=== PATIENT | female | born 1985 | race Caucasian/White ===

== ENCOUNTER → 2018-02-02 | Outpatient (CLI) | payer OTHER ==
--- NOTE | 2018-02-02 13:37 | US ---
EXAMINATION TYPE: Transabdominal DATE OF EXAM: 07/07/17 COMPARISON: NONE CLINICAL HISTORY: Z36 Confirm dates and Viability. EXAM PERFORMED: Transabdominal (TA) EXAM MEASUREMENTS: GESTATIONAL AGE / DATING Physician Established: Not yet established Dates by LMP: (13 weeks/0 days) EDC: 08/10/2018 Dates by First Scan: No previous this is first scan Dates by Current Scan for: (13 weeks/0 days) EDC: 08/10/2018 MATERNAL ANATOMY Uterus: 12.8 x 9.0 x 8.4cm Right Ovary: not seen Left Ovary: 3.3 x 2.0 x 1.8cm Post CDS / Adnexa: wnl Presence of free fluid: no Presence of corpus luteal cyst: in left ovary = 2.0 x 1.5 x 1.3cm Presence of subchorionic bleed: no GESTATION / SURVEY CRL: 6.6cm (13 weeks/0 days) Yolk Sac (normal less than 6mm): not seen Heart Rate: 155 bpm Rhythm: Normal IUP: single Nuchal Translucency 10-14wks (normal less than 3mm): 1.3mm Date of LMP: 11/03/2017 Beta HcG (if available): NA Single, live IUP, 13 weeks/0 days, EDC: 08/10/2018, [id number] IMPRESSION: Single live intrauterine with a sonographic age of 13 weeks and 0 days and estimated date o f delivery of 08/10/2018. Dates are concordant with the menstrual age.
[2018-02-02 14:09] LABS: HCT 35.9 % (34.0-46.0); HGB 12.3 gm/dL (11.4-16.0); MCH 30.8 pg (25.0-35.0); MCHC 34.4 g/dL (31.0-37.0); MCV 89.7 fL (80.0-100.0); Platelet Count 248 k/uL (150-450); WBC 8.7 k/uL (3.8-10.6)
[2018-02-02 14:12] LABS: Glucose 85 mg/dL (74-99)
[2018-02-02 19:47] LABS: Hepatitis B Surface AB- Quant 475.5 mIU/mL
[2018-02-02 20:50] LABS: HIV 1 AB Non-Reactive (Non-Reactive); HIV AB P24 Non-Reactive (Non-Reactive); HIV P24 AG Non-Reactive (Non-Reactive)
[2018-02-03 07:14] LABS: Toxoplasma Antibody (IgG) <3.0 IU/mL (<7.2); Toxoplasma Antibody (IgM) <3.0 AU/mL (<8.0)
== END | disposition home or self-care (01) ==
LOC: RADUSWWP 12:18
PROVIDERS: ATTEND Obstetrics & Gynecology
DX: O26.811 Pregnancy related exhaustion and fatigue, first trimester (principal); Z3A.13 13 weeks gestation of pregnancy
CPT/HCPCS: 76801; 76813; 82565; 82947; 85027; 86706; 86762; 86777; 86778; 86780; 86850; 86900; 86901; 87390

== ENCOUNTER → 2018-03-16 | Outpatient (CLI) | payer OTHER ==
--- NOTE | 2018-03-16 12:57 | US ---
EXAMINATION TYPE: US OB anatomy transabd DATE OF EXAM: 03/16/2018 COMPARISON: First trimester ultrasound February 02, 2018 HISTORY: O36.62X0 LARGE FOR DATES TECHNIQUE: Transabdominal (TA) EXAM MEASUREMENTS: GESTATIONAL AGE / DATING Physician Established: (19 weeks/0 days) EDC: 08/10/2018 Dates by LMP: (19 weeks/0 days) EDC: 08/10/2018 Dates by First Scan: (19 weeks/0 days) EDC: 08/10/2018 Dates by Current Scan for: (19 weeks/3 days) EDC: 08/07/2018 SURVEY IUP: Single PLACENTA: Anterior PREVIA: No previa DELIA: 13.1 cm Normal CERVICAL LENGTH (transabdominal: norm > 3.0cm): 4.0 cm BIOMETRY PRESENTATION: Vertex BPD: 4.4 cm 19 weeks / 3 days HC: 15.5 cm 18 weeks / 4 days AC: 13.7 cm 19 weeks / 1 days FL: 3.3 cm 20 weeks / 3 days ESTIMATED WEIGHT IN GRAMS: 299 grams ESTIMATED WEIGHT IN LBS/OZ: 0 lbs. 11 oz. WEIGHT PERCENTAGE BASED ON ESTABLISHED DATE: 78 % HC/AC: 1.1 Normal FL/AC: 24% Normal HEART RATE: 147 bpm RHYTHM: Normal ANATOMY SEEN (within normal limits): * Lateral Vent (< 1 cm) 0.7 cm * Cisterna Magna (< 1.1 cm) 0.5 cm * Nuchal Fold (< 0.6 cm) 0.2 cm * Cerebellum (varies with age) 0.9 cm Choroid Plexus (bilateral) Midline Falx Cavus Septi Pellucidi Four Chamber Heart Outflow tracts: LVOT/RVOT Stomach Situs Nose / Lips Diaphragm Kidneys (bilateral) Bladder Cord Insert Three Vessel Cord Longitudinal Spine Transverse Spine Arms (bilateral) Legs (bilateral) Single live intrauterine gestation is redemonstrated. No suspicious cervical thinning is seen. Normal cephalad presentation to fetus is seen currently. There is no ultrasound evidence for placenta previ a. Amniotic fluid index is calculated within normal limits. biometry measurements are congruent and felt within normal limits. During real-time scanning no suspicious anatomical abnormality is see n. Images saved show no suspicious abnormality. There is slightly suboptimal visualization of kidneys on images saved. IMPRESSION: As above.
== END | disposition home or self-care (01) ==
LOC: RADUSWWP 08:46
PROVIDERS: ATTEND Obstetrics & Gynecology
DX: O36.62X0 Maternal care for excessive fetal growth, second trimester, not applicable or unspecified (principal); Z3A.19 19 weeks gestation of pregnancy
CPT/HCPCS: 76811

== ENCOUNTER → 2018-04-22 | Outpatient (CLI) | payer OTHER ==
[2018-04-22 09:50] LABS: HCT 35.4 % (34.0-46.0); HGB 11.4 gm/dL (11.4-16.0); MCH 30.1 pg (25.0-35.0); MCHC 32.3 g/dL (31.0-37.0); Mean Platelet Volume 6.5; Platelet Count 217 k/uL (150-450); RDW 13.1 % (11.5-15.5)
== END ==
LOC: LABWHC1 08:10
PROVIDERS: ATTEND Obstetrics & Gynecology
DX: Z34.82 Encounter for supervision of other normal pregnancy, second trimester (principal); Z3A.00 Weeks of gestation of pregnancy not specified
CPT/HCPCS: 36415; 82950; 85027

== ENCOUNTER → 2018-07-08 | Outpatient (CLI) | payer OTHER ==
--- NOTE | 2018-07-08 13:24 | US ---
EXAMINATION TYPE: US OB >= 14 wk fetus DATE OF EXAM: 07/08/2018 COMPARISON: Prior ultrasounds February 02, 2018 first trimester and second trimester March 16, 2018 CLINICAL HISTORY: O36.63X0 Large for Dates TECHNIQUE: GESTATIONAL AGE / DATING Physician Established: (35 weeks/ 2 days) EDC: 08/10/18 Dates by LMP: (35 weeks/2 days) EDC: 08/10/18 Dates by First Scan: (35 weeks/2 days) EDC: 08/10/18 Dates by Current Scan: (34 weeks/1 days) EDC: 08/18/18 SURVEY IUP: Single PLACENTA: Anterior PREVIA: No Previa DELIA: 9.2 cm CERVICAL LENGTH (transvaginal: norm> 2.5cm): 3.3 cm BIOMETRY PRESENTATION: Vertex BPD: 8.8 cm 35 weeks / 2 days HC: 31.3 cm 35 weeks / 1 days AC: 28.8 cm 32 weeks / 6 days FL: 6.7 cm 34 weeks / 3 days ESTIMATED WEIGHT IN GRAMS: 2266 grams ESTIMATED WEIGHT IN LBS/OZ: 5 lbs. 0 oz. WEIGHT PERCENTAGE BASED ON ESTABLISHED DATES: 12% HC/AC: 1.1 FL/AC: 23.2 HEART RATE: 148 bpm RHYTHM: Normal Anatomy visualized wnl: Bladder Stomach Situs Nose/lips Cavum Septum Pellucidi 3 vessel chord Diaphragm Single live intrauterine gestation is redemonstrated. Normal cephalad presentation to fetus is seen. No cervical thinning is noted. No ultrasound evidence for placenta previa. Amniotic fluid index is ca lculated lower limits of normal. The biometry measurements and congruent and felt within normal limits. Estimated weight lower limits of normal. During real-time scanning there is redemonst ration of some normal anatomical structures as noted above. IMPRESSION: As above.
== END | disposition home or self-care (01) ==
LOC: RADUSWWP 12:10
PROVIDERS: ATTEND Obstetrics & Gynecology
DX: O36.63X0 Maternal care for excessive fetal growth, third trimester, not applicable or unspecified (principal); Z3A.34 34 weeks gestation of pregnancy
CPT/HCPCS: 76805

== ENCOUNTER 2018-07-13 08:51 | Outpatient (CLI) | payer OTHER ==
[2018-07-13 09:53] LABS: Basophils % (A) 0 %; Eosinophils # (A) 0.1 k/uL (0-0.7); Eosinophils % (A) 1 %; HCT 34.5 % (34.0-46.0); HGB 11.9 gm/dL (11.4-16.0); Lymphocytes # (A) 1.6 k/uL (1.0-4.8); Lymphocytes % (A) 17 %; MCH 29.9 pg (25.0-35.0); MCHC 34.6 g/dL (31.0-37.0); MCV 86.5 fL (80.0-100.0); Monocytes # (A) 0.6 k/uL (0-1.0); Monocytes % (A) 6 %; Neutrophils % (A) 73 %; Platelet Count 208 k/uL (150-450); RBC 3.99 m/uL (3.80-5.40); RDW 12.7 % (11.5-15.5); WBC 9.6 k/uL (3.8-10.6)
[2018-07-13 09:58] LABS: ALT 16 U/L (9-52); AST 13 U/L (14-36); Blood Urea Nitrogen 9 mg/dL (7-17); LDH 408 U/L (313-618); Uric Acid 4.2 mg/dL (3.7-7.4)
[2018-07-13 10:03] LABS: Appearance,Urine Clear (Clear); Bilirubin,Urine Negative (Negative); Blood,Urine Negative (Negative); Color,Urine Yellow; Glucose,Urine (UA) Negative (Negative); Ketones,Urine Negative (Negative); Leukocyte Esterase,Urine Negative (Negative); Nitrite,Urine Negative (Negative); PH, Urine 5.5 (5.0-8.0); Protein,Urine Negative (Negative); Specific Gravity,Urine 1.018 (1.001-1.035); Urobilinogen,Urine <2.0 mg/dL (<2.0)
[2018-07-13 10:28] LABS: INR 0.8 (<1.2); Partial Thromboplastin Time 22.4 sec (22.0-30.0); Prothrombin Time 9.3 sec (9.0-12.0)
[2018-07-13 11:08] VITALS: BP 132/93; PULSE 98; RESP 16; TEMP 97.9
--- NOTE | 2018-07-13 18:04 | P.MSEPDOC ---
Presenting Problems - Arrival Data Date of Arrival on Unit: 07/13/18 Time of Arrival on Unit: 08:55 Mode of Transport: Ambulatory - Complaint OB-Reason for Admission/Chief Complaint: PIH Comment: sent from office for PIH workup Medical History - Information : 2 Para: 1 Term: 1 : 0 Abortions: Spontaneous or Elective: 0 Number of Living Children: 1 - Gestational Age Gestational Age by GEORGE (wks/days): 36 Weeks and 0 Days Review of Systems - Review of Systems Constitutional: No problems Breast: No problems ENT: No problems Cardiovascular: No problems Respiratory: No problems Gastrointestinal: No problems Genitourinary: No problems Musculoskeletal: No problems Neurological: No problems Skin: No problems Vital Signs - Temperature Temperature: 97.9 F Temperature Source: Temporal Artery Scan - Pulse Right Brachial Pulse Rate: 98 Pulse Assessment Method: Automatic Cuff - Respirations Respiratory Rate: 16 Oxygen Delivery Method: Room Air - Blood Pressure Right Arm Blood Pressure: 132/93 Blood Pressure Mean: 106 Blood Pressure Source: Automatic Cuff Medical Screen Scoring (Pre) - Cervical Exam Dilation: Exam Deferred Effacement: Exam Deferred - Uterine Contractions Frequency: N/A Duration: N/A Intensity: N/A - Maternal Vital Signs Maternal Temperature: N/A Maternal Blood Pressure: Diastolic > 89 = 1 Signs of Preeclampsia: N/A Maternal Respirations: N/A - Pain Assessment Pain Scale Used: Numeric (1 - 10) Pain Intensity: 0 - Maternal Trauma Maternal Trauma: N/A - Assessment Baseline FHR: 135 Heart Rate - NICHD Category: Category I (Normal) = 0 NST: Reactive Position: N/A Station: N/A - Total Score Total Score (Pre): 1 - Level of Risk Level of Risk: Low (0-5) Physician Notification (Pre) - Physician Notified Physician Notified Date: 07/13/18 Physician Notified Time: 10:35 Physician/Practitioner Notifed:: ashly Spoke With: ashly New Order Received: Yes - Notification Comment Comment: pt sent from office for [facility] work-up. sent with orders. reported labs wnl, blood pressures reported as documented in [facility], Dr would like blood pressure monitored for one more hour and called back for report Physician Notification (Post) - Physician Notified Physician Notified Date: 07/13/18 Physician Notified Time: 11:45 Physician/Practitioner Notified:: ashly Spoke With: ashly New Order Received: Yes - Notification Comment Comment: reported bp's for past hour. discharges pt home. follow up at scheduled appointment thursday Disposition - Disposition OB Disposition: Discharge to home Discharge Date: 07/13/18 Discharge Time: 11:46 I agree with the RN Medical Screening Exam: Yes Risk & Benefit of care provided described in d/c instruction: Yes Diagnosis: GESTATIONAL HTN W/O SIGNIFICANT PROTEINURIA, THIRD TRIMESTER (Pt has gestational hypertension, without evidence of pre-eclampsia. I will see her back in about 2-3 days. We discussed delivery at 37wks due to this, earlier if evidence of preeclampsia.)
== END 2018-07-13 11:45 | disposition home or self-care (01) ==
LOC: FBPOP 08:51
PROVIDERS: ATTEND Obstetrics & Gynecology
DX: O13.3 Gestational [pregnancy-induced] hypertension without significant proteinuria, third trimester (principal); Z3A.36 36 weeks gestation of pregnancy
CPT/HCPCS: 59025; 81003; 82565; 82570; 83615; 84156; 84450; 84460; 84520; 84550; 85025; 85610; 85730

== ENCOUNTER 2018-07-16 10:58 | Observation (INO) | payer OTHER ==
[2018-07-16 12:05] LABS: Appearance,Urine Clear (Clear); Bilirubin,Urine Negative (Negative); Blood,Urine Negative (Negative); Color,Urine Light Yellow; Glucose,Urine (UA) Negative (Negative); Ketones,Urine Negative (Negative); Leukocyte Esterase,Urine Negative (Negative); Nitrite,Urine Negative (Negative); PH, Urine 6.5 (5.0-8.0); Protein,Urine Negative (Negative); Urobilinogen,Urine <2.0 mg/dL (<2.0)
[2018-07-16 12:21] LABS: Creatinine,Urine Random 62.1 mg/dL
--- NOTE | 2018-07-16 12:31 | US ---
EXAMINATION TYPE: US OB >= 14 wk fetus DATE OF EXAM: 07/16/2018 COMPARISON: None CLINICAL HISTORY: induced hypertension at 36 weeks HTN TECHNIQUE: Transabdominal (TA) GESTATIONAL AGE / DATING Physician Established: (36 weeks/3 days) EDC: 08/10/18 Dates by LMP: (36 weeks/3 days) EDC: 08/10/18 Dates by First Scan: (36 weeks/3 days) EDC: 08/10/18 Dates by Current Scan: (36 weeks/2 days) EDC: 08/11/18 SURVEY IUP: Single PLACENTA: Anterior PREVIA: No Previa DELIA: 15.5 cm Normal CERVICAL LENGTH (transabdominal: norm > 3.0cm): 4.3 cm BIOMETRY PRESENTATION: Vertex LIE: Longitudinal BPD: 9.0 cm 36 weeks / 2 days HC: 33.1 cm 37 weeks / 5 days AC: 31.5 cm 35 weeks / 3 days FL: 7.1 cm 36 weeks / 3 days ESTIMATED WEIGHT IN GRAMS: 2833 grams ESTIMATED WEIGHT IN LBS/OZ: 6 lbs. 4 oz. WEIGHT PERCENTAGE BASED ON ESTABLISHED DATES: 42.2% HC/AC: 1.05 Normal FL/AC: 22.55 Normal HEART RATE: 159 bpm RHYTHM: Normal IMPRESSION: Single live intrauterine has a sonographic age of 36 weeks and 2 days and estimated date of delivery of 08/11/2018, concordant with menstrual age. heart rate and amniotic fluid index are w ithin normal limits.
[2018-07-16 13:23] LABS: Basophils % (A) 0 %; Eosinophils % (A) 0 %; HCT 35.3 % (34.0-46.0); HGB 11.6 gm/dL (11.4-16.0); Lymphocytes # (A) 1.6 k/uL (1.0-4.8); Lymphocytes % (A) 17 %; MCH 29.3 pg (25.0-35.0); MCHC 32.8 g/dL (31.0-37.0); MCV 89.2 fL (80.0-100.0); Mean Platelet Volume 8.1; Monocytes # (A) 0.5 k/uL (0-1.0); Monocytes % (A) 5 %; Neutrophils % (A) 74 %; Platelet Count 232 k/uL (150-450); RBC 3.95 m/uL (3.80-5.40); RDW 12.7 % (11.5-15.5); WBC 9.5 k/uL (3.8-10.6)
[2018-07-16 13:36] LABS: ALT 25 U/L (9-52); AST 18 U/L (14-36); Blood Urea Nitrogen 7 mg/dL (7-17); LDH 447 U/L (313-618); Uric Acid 4.7 mg/dL (3.7-7.4)
[2018-07-16 15:06] VITALS: RESP 16; BMI 34.3
[2018-07-16 15:48] VITALS: TEMP 97.1
[2018-07-16 17:45] VITALS: BP 135/90
--- NOTE | 2018-07-16 18:30 | P.HPOB ---
History of Present Illness H&P Date: 07/16/18 Chief Complaint: Hypertension This patient is a pleasant 32-year-old 2 para 1 female estimated date of confinement 08/10/2018 estimated gestational age 36-3/7 weeks who presented to my office this morning for follow-up visit secondary to gestational hypertension. Patient's history is such that approximately 3 days ago she was in the office her blood pressure 148/100 sent to labor and delivery for evaluation of preeclampsia. Labs are negative at that time and pressures were acceptable. Patient followed up today for repeat blood pressure check and office visit was found to have again persistent blood pressure elevation greater than 140/90. Patient sent to labor and delivery for further evaluation. care otherwise has been uncomplicated. Review of Systems Genitourinary: Reports Menstruation: Reports amenorrhea Past Medical History Past Medical History: No Reported History History of Any Multi-Drug Resistant Organisms: None Reported Past Surgical History: No Surgical Hx Reported Past Anesthesia/Blood Transfusion Reactions: No Reported Reaction Past Psychological History: No Psychological Hx Reported Smoking Status: Never smoker Past Alcohol Use History: None Reported Past Drug Use History: None Reported - Past Family History Mother Family Medical History: No Reported History Additional Family Medical History / Comment(s): grandmother pancreatic canser Medications and Allergies Home Medications Medication Instructions Recorded Confirmed Type Pnv,Calcium 72/Iron/Folic Acid 1 each PO DAILY 07/13/18 07/16/18 History [ Plus Tablet] Ranitidine HCl [Zantac] 1 tab PO DAILY 07/13/18 07/16/18 History Allergies Allergy/AdvReac Type Severity Reaction Status Date / Time No Known Allergies Allergy Verified 07/16/18 14:43 Exam Vital Signs Temp Pulse Pulse Resp BP 07/16/18 17:45 88 16 135/90 07/16/18 15:47 97.1 F L 88 16 132/81 07/16/18 14:02 98.3 F 76 16 124/79 07/16/18 13:00 84 16 126/94 07/16/18 12:43 97.8 F 80 16 154/88 07/16/18 12:19 97.8 F 100 16 135/94 Intake and Output 07/16/18 07/16/18 07/16/18 06:59 14:59 22:59 Other: Weight 90.718 kg - OBG Physical Exam Abdomen: bowel sounds normal, no diffuse tenderness, no bruit present, no guarding noted, no hepatomegaly, no splenomegaly, no mass Vulva: both: normal Vagina: normal moisture, no discharge Cervix: no lesion (Cervix in the office was fingertip thick), no discharge Uterus: enlarged (Fundal height is 37 cm) Results blood work shows she is A positive, rubella immune, RPR is nonreactive, hepatitis B was negative, HIV is nonreactive, Glucola was normal, group B strep was negative. Result Diagrams: 07/16/18 12:58 07/16/18 12:58 Abnormal Lab Results - Last 24 Hours (Table) 07/16/18 Range/Units 12:58 Creatinine 0.45 L (0.52-1.04) mg/dL Assessment and Plan Assessment: This is a pleasant 32-year-old 2 para 1 female 36-3/7 weeks gestation is admitted to labor and delivery for observation secondary to gestational hypertension. Patient this time does not appear to have preeclampsia, however I'm going to admit her overnight for observation and serial blood pressures. Due to the gestational hypertension if everything is okay overnight also likely will go home and presented back Thursday evening for Cervidil and delivery at 37 weeks. If there was evidence of significant hypertension or preeclampsia proceed with delivery earlier. Patient, I, and her have discussed this plan and she is agreeable. (1) 36 weeks gestation of Current Visit: Yes Status: Acute Code(s): Z3A.36 - 36 WEEKS GESTATION OF SNOMED Code(s): 96465910 (2) Gestational hypertension Current Visit: Yes Status: Acute Code(s): O13.9 - GESTATIONAL HTN W/O SIGNIFICANT PROTEINURIA, UNSP TRIMESTER SNOMED Code(s): 385043284
[2018-07-16 18:44] VITALS: PULSE 76
--- NOTE | 2018-07-16 18:44 | P.MSEPDOC ---
Presenting Problems - Arrival Data Date of Arrival on Unit: 07/16/18 Time of Arrival on Unit: 14:15 Mode of Transport: Ambulatory - Complaint OB-Reason for Admission/Chief Complaint: PIH Medical History - Information : 2 Para: 1 Term: 1 : 0 Abortions: Spontaneous or Elective: 0 Number of Living Children: 1 - Gestational Age Gestational Age by GEORGE (wks/days): 36 Weeks and 3 Days - History Complications: Preeclampsia Review of Systems - Review of Systems Constitutional: No problems Breast: No problems ENT: No problems Cardiovascular: No problems Respiratory: No problems Gastrointestinal: No problems Genitourinary: No problems Musculoskeletal: No problems Neurological: No problems Skin: No problems Vital Signs - Temperature Temperature: 97.1 F Temperature Source: Temporal Artery Scan - Pulse Apical Pulse Rate: 76 Pulse Assessment Method: Automatic Cuff Pulse Oximetery Pulse Rate: 88 Pulse Assessment Method: Automatic Cuff - Respirations Respiratory Rate: 16 Oxygen Delivery Method: Room Air - Blood Pressure Right Arm Blood Pressure: 135/90 Blood Pressure Mean: 105 Blood Pressure Source: Automatic Cuff Medical Screen Scoring (Pre) - Cervical Exam Dilation: Exam Deferred Effacement: Exam Deferred Membranes: Intact - Uterine Contractions Frequency: N/A Duration: N/A Intensity: N/A - Maternal Vital Signs Maternal Temperature: N/A Maternal Blood Pressure: Diastolic > 89 = 1 Signs of Preeclampsia: N/A Maternal Respirations: N/A - Pain Assessment Pain Location and Character: Generalized Pain Scale Used: Numeric (1 - 10) Pain Intensity: 2 Pain Management Goal: 3 Pain Description: *Acute Pain Frequency: Intermittent Pain Duration Units: Minutes Pain Behavior: Vocalization - Maternal Trauma Maternal Trauma: N/A - Assessment Baseline FHR: 140 Heart Rate - NICHD Category: Category I (Normal) = 0 NST: Reactive Position: N/A Station: N/A - Total Score Total Score (Pre): 1 - Level of Risk Level of Risk: Low (0-5) Physician Notification (Pre) - Physician Notified Physician Notified Date: 07/16/18 Physician Notified Time: 12:19 Physician/Practitioner Notifed:: Dr. Roach Spoke With: Dr. Roach New Order Received: Yes (Sent over from office for [facility] work up.) Medical Screen Scoring (Post) - Cervical Exam Dilation: Exam Deferred Effacement: Exam Deferred Membranes: Intact - Uterine Contractions Frequency: N/A Duration: N/A Intensity: N/A - Maternal Vital Signs Maternal Temperature: N/A Maternal Blood Pressure: Diastolic > 89 = 1 Signs of Preeclampsia: N/A Maternal Respirations: N/A - Pain Assessment Pain Location and Character: Generalized Pain Scale Used: Numeric (1 - 10) Pain Intensity: 2 Pain Management Goal: 3 Pain Description: *Acute Pain Frequency: Intermittent Pain Duration Units: Minutes Pain Behavior: Vocalization - Assessment Heart Rate: 140 Heart Rate - NICHD Category: Category I (Normal) = 0 NST: Reactive Position: N/A Station: N/A - Total Score Total Score (Post): 1 - Post Treatment Level of Risk Post Treatment Level of Risk: Low (0-5) Physician Notification (Post) - Physician Notified Physician Notified Date: 07/16/18 Physician Notified Time: 12:43 Physician/Practitioner Notified:: Dr. Roach Spoke With: Dr. Roach New Order Received: Yes (admit as 24hr obv at this time.) - Notification Comment Comment: Verbal orders from Dr. Roach to admit pt as 24hr obv at this time. Continuous fht monitoring and regular diet. Disposition - Disposition OB Disposition: Admit Discharge Date: 07/16/18 Discharge Time: 12:43 I agree with the RN Medical Screening Exam: Yes Risk & Benefit of care provided described in d/c instruction: Yes Diagnosis: GESTATIONAL HTN W/O SIGNIFICANT PROTEINURIA, THIRD TRIMESTER
--- NOTE | 2018-07-17 07:44 | P.PN ---
Progress Note - Text Progress Note Date: 07/17/18 Hospital day #2. Patient's rested overnight and nonstress test was category 1. Blood pressures remain stable. At this point there is no evidence of preeclampsia or maternal compromise. She does have gestational hypertension plan is to proceed with induction per recommendations at 37 weeks. Patient therefore we'll go home on modified bed rest and follow up here on Thursday for Cervidil placement. She is given strict instructions to call she had any signs or symptoms of preeclampsia or other concerns.
--- NOTE | 2018-07-17 07:47 | P.DS ---
Providers Date of admission: 07/16/18 13:31 Expected date of discharge: 07/17/18 Attending physician: Javi Roach Primary care physician: Stated None - Discharge Diagnosis(es) (1) 36 weeks gestation of Current Visit: Yes Status: Acute (2) Gestational hypertension Current Visit: Yes Status: Acute Hospital Course: Please see dictated H&P for intimate details of this patient's admission. Brief summary is a pleasant 32-year-old 2 para 1 female 36-3/7 weeks gestation admitted for evaluation of gestational hypertension. Patient is admitted preeclampsia labs are normal. Ultrasound was normal. NST is category 1. Patient's observed overnight blood pressures remain stable. Patient's discharge home follow up Thursday for Cervidil placement secondary to gestational hypertension. Patient Condition at Discharge: Good Plan - Discharge Summary New Discharge Prescriptions: No Action Pnv,Calcium 72/Iron/Folic Acid [ Plus Tablet] 1 each PO DAILY Ranitidine HCl [Zantac] 1 tab PO DAILY Discharge Medication List Pnv,Calcium 72/Iron/Folic Acid [ Plus Tablet] 1 each PO DAILY 07/13/18 [History] Ranitidine HCl [Zantac] 1 tab PO DAILY 07/13/18 [History] Follow up Appointment(s)/Referral(s): Javi Roach MD [STAFF PHYSICIAN] - 07/19/18 Patient Instructions/Handouts: Preeclampsia (GEN) Discharge Disposition: HOME SELF-CARE
== END 2018-07-17 08:41 | disposition home or self-care (01) ==
LOC: FBPOP 10:58 → 4FBP 13:31
PROVIDERS: ADMIT Obstetrics & Gynecology; ATTEND Obstetrics & Gynecology
DX: O13.3 Gestational [pregnancy-induced] hypertension without significant proteinuria, third trimester (principal); Z3A.36 36 weeks gestation of pregnancy
CPT/HCPCS: 59025; 99215; 82570; 84156; 82565; 83615; 84450; 84460; 84520; 84550; 85025; 81003; 76805; G0378 ×2

== ENCOUNTER 2018-07-19 06:00 | Inpatient (IN) | payer OTHER ==
[2018-07-19] MEDS ORDERED: BUTORPHANOL 1 MG/ML 1 ML VIAL IV PRN (16:38)
[2018-07-19] MEDS ORDERED: DINOPROSTONE 10 MG INSERT.ER VAGINAL ONE (16:38)
--- NOTE | 2018-07-19 16:45 | P.HPOB ---
History of Present Illness H&P Date: 07/19/18 Chief Complaint: Gestational hypertension. This patient is a pleasant 32-year-old 2 para 1 female estimated date of confinement 08/10/2018 estimated gestational age 37 weeks who presents to labor and delivery for two-stage induction of labor secondary to gestational hypertension. Patient has been in labor and delivery and admitted overnight most recently for high blood pressure. She said serial blood work which shows no evidence of preeclampsia however she has documented blood pressures on more than one occasion greater than 140/90. Per current recommendations plan is to proceed with delivery at this time secondary to gestational hypertension. Patient's care has otherwise been uncomplicated. Review of Systems Genitourinary: Reports Menstruation: Reports amenorrhea Past Medical History Past Medical History: No Reported History History of Any Multi-Drug Resistant Organisms: None Reported Past Surgical History: No Surgical Hx Reported Past Anesthesia/Blood Transfusion Reactions: No Reported Reaction Past Psychological History: No Psychological Hx Reported Smoking Status: Never smoker Past Alcohol Use History: None Reported Past Drug Use History: None Reported - Past Family History Mother Family Medical History: No Reported History Additional Family Medical History / Comment(s): grandmother pancreatic canser Medications and Allergies Home Medications Medication Instructions Recorded Confirmed Type Pnv,Calcium 72/Iron/Folic Acid 1 each PO DAILY 07/13/18 07/16/18 History [ Plus Tablet] Ranitidine HCl [Zantac] 1 tab PO DAILY 07/13/18 07/16/18 History Allergies Allergy/AdvReac Type Severity Reaction Status Date / Time No Known Allergies Allergy Verified 07/19/18 16:37 Exam Intake and Output 07/19/18 07/19/18 07/19/18 06:59 14:59 22:59 Other: Weight 90.718 kg - OBG Physical Exam Vulva: both: normal Vagina: normal moisture, no discharge Cervix: Cervix in the office was closed and uneffaced. Uterus: enlarged (Fundal height is 37 cm) Results blood work shows she is A positive, rubella immune, RPR nonreactive, hepatitis B negative, HIV nonreactive, Glucola was normal, group B strep was negative, most recent ultrasound showed baby approximately 6 lbs. 4 oz. Assessment and Plan Assessment: This is a pleasant 33-year-old 2 para 1 female 37-0/7 weeks gestation admitted for two-stage induction of labor secondary to gestational hypertension. Plan at this time is to proceed with two-stage induction of labor and anticipate vaginal delivery. Patient, eye, and her have discussed her c linical situation and they wished to proceed with delivery. (1) 37 weeks gestation of Current Visit: Yes Status: Acute Code(s): Z3A.37 - 37 WEEKS GESTATION OF SNOMED Code(s): 35085898 (2) Gestational hypertension Current Visit: No Status: Acute Code(s): O13.9 - GESTATIONAL HTN W/O SIGNIFICANT PROTEINURIA, UNSP TRIMESTER SNOMED Code(s): 801637584
[2018-07-19 16:46] VITALS: BMI 34.3
[2018-07-20] MEDS ORDERED: CARBOPROST TROMETHAMINE 250 MCG/ML 1 ML AMP IM PRN (04:50)
[2018-07-20] MEDS ORDERED: OXYTOCIN 30 UNITS/500 ML NS 30 UNIT in SALINE 1 500ML.BAG IV SCH (04:50)
[2018-07-20] MEDS ORDERED: OXYTOCIN 10 UNIT/ML 1 ML VIAL IM PRN (04:50)
[2018-07-20] MEDS ORDERED: METHYLERGONOVINE 0.2 MG/ML 1 ML AMP IM PRN (04:50)
[2018-07-20] MEDS ORDERED: TERBUTALINE 1 MG/ML VIAL SQ PRN (04:50)
[2018-07-20] MEDS ORDERED: LIDOCAINE 0.5% (PF) 5 MG/ML (50 ML SDV) SQ PRN (04:50)
[2018-07-20] MEDS ORDERED: LACTATED RINGERS 1,000 ML IV SCH (04:50)
[2018-07-20 06:19] LABS: INR 0.8 (<1.2); Partial Thromboplastin Time 22.1 sec (22.0-30.0); Prothrombin Time 9.3 sec (9.0-12.0)
[2018-07-20 06:21] LABS: Albumin 3.5 g/dL (3.5-5.0); Bilirubin, Delta 0.1 mg/dL (0.0-0.2); Bilirubin,Unconjugated 0.3 mg/dL (0.0-1.1); Total Bilirubin 0.4 mg/dL (0.2-1.3); Uric Acid 4.7 mg/dL (3.7-7.4)
--- NOTE | 2018-07-20 06:28 | P.PN ---
Progress Note - Text Progress Note Date: 07/20/18 Patient responded well to Cervidil overnight and is 2-3 cm dilated 50% effaced. She had some episodic blood pressure elevations however this did not require treatment. heart tones are category 1. Plan today is to proceed with induction of labor with Pitocin per protocol and artificial rupture membranes.
[2018-07-20 06:33] LABS: Basophils % (A) 0 %; Eosinophils # (A) 0.1 k/uL (0-0.7); Eosinophils % (A) 1 %; HCT 34.6 % (34.0-46.0); HGB 11.9 gm/dL (11.4-16.0); Lymphocytes % (A) 17 %; MCH 30.3 pg (25.0-35.0); MCHC 34.4 g/dL (31.0-37.0); MCV 88.1 fL (80.0-100.0); Mean Platelet Volume 8.6; Monocytes # (A) 0.5 k/uL (0-1.0); Monocytes % (A) 4 %; Neutrophils # (A) 8.7 k/uL (1.3-7.7); Neutrophils % (A) 75 %; Platelet Count 241 k/uL (150-450); RBC 3.93 m/uL (3.80-5.40); RDW 13.7 % (11.5-15.5); WBC 11.6 k/uL (3.8-10.6)
[2018-07-20] MEDS ORDERED: SODIUM CHLORIDE 0.9% 100 ML BAG ONE (08:28)
[2018-07-20] MEDS ORDERED: fentaNYL (PF) 50 MCG/ML 5 ML AMP ONE (08:28)
[2018-07-20] MEDS ORDERED: BUPIVACAINE (PF) 0.25% 30 ML VIAL ONE (08:28)
[2018-07-20] MEDS ORDERED: WITCH HAZEL 1 EACH MED..PAD TOPICAL PRN (12:46)
[2018-07-20] MEDS ORDERED: BISACODYL 10 MG SUPP RECTAL PRN (12:46)
[2018-07-20] MEDS ORDERED: OXYTOCIN 20 UNITS/1000 ML NS 1,000 ML IV SCH (12:46)
[2018-07-20] MEDS ORDERED: diphenhydrAMINE 25 MG CAP PO PRN (12:46)
[2018-07-20] MEDS ORDERED: LANOLIN CREAM 5 GM TUBE TOPICAL PRN (12:46)
[2018-07-20] MEDS ORDERED: diphenhydrAMINE 50 MG/ML 1 ML VIAL IVP PRN (12:46)
[2018-07-20] MEDS ORDERED: ACETAMINOPHEN TAB 325 MG TAB PO PRN (12:46)
[2018-07-20] MEDS ORDERED: HYDROCORTISONE 2.5% RECTAL CREAM 30 GM TUBE RECTAL PRN (12:46)
[2018-07-20] MEDS ORDERED: SIMETHICONE 80 MG CHEWABLE PO PRN (12:46)
[2018-07-20] MEDS ORDERED: ZOLPIDEM 5 MG TAB PO PRN (12:46)
[2018-07-20] MEDS ORDERED: BENZOCAINE/MENTHOL SPRAY 1 GM/SPRAY AEROSOL TOPICAL PRN (12:46)
--- NOTE | 2018-07-20 12:46 | P.PROBDLV ---
Vaginal Delivery Note - . Vaginal Delivery Note: Normal vaginal delivery viable male Apgars 8 and 9 delivery time is 1233 hrs. Please see dictated H&P for intimate details of this patient's admission. Brief summary is a pleasant 33-year-old 2 para 1 female 37 weeks gestation who is admitted for two-stage induction of labor secondary to gestational hypertension. Patient is admitted last evening Cervidil is placed.'s morning patient was 2-3 cm dilated has artificial rupture membranes for clear fluid. Labor is augmented at that time with Pitocin. Patient's labor progresses normally and she gets an epidural for pain control. Patient gets to complete pushes a proximally 1 time and delivers infant's head over a controlled fashion. Mouth and nares are bulb suctioned. There is a nuchal cord 1 which is easily reduced. With gentle downward traction we then have delivery the anterior and posterior shoulder and rest this infant's body. This is a vigorous viable male Apgars are 8 and 9 delivery time was 1233 hrs. After delivery the infant the is late the mother's abdomen. After the umbilical cord is done pulsating is doubly clamped and cut. Appears to be trivascular. Placenta spontaneously delivered intact. Estimated blood loss 100 mL. The left superficial periurethral laceration does not require sutures. Infant and mother are stable delivery room. All counts correct 3. There are no complications.
[2018-07-20] MEDS: IBUPROFEN 600 MG TAB PO PRN (19:55)
[2018-07-20] MEDS: SENNOSIDES-DOCUSATE SODIUM 1 EACH TAB PO SCH ×2 (19:55)
--- NOTE | 2018-07-21 06:29 | P.PNOBGVD ---
Subjective - Subjective Patient reports: Reports appetite normal, Reports voiding normally, Reports pain well controlled, Reports ambulating normally : doing well Objective - Latest Vital Signs Latest vital signs: Vital Signs Temp Pulse Resp BP Pulse Ox 07/20/18 23:51 98.1 F 86 18 90/40 98 07/20/18 19:47 98.5 F 94 16 145/80 07/20/18 16:00 98.3 F 84 15 146/93 07/20/18 14:45 97.5 F L 83 15 131/78 07/20/18 14:10 83 15 129/76 07/20/18 13:45 87 16 140/83 07/20/18 13:33 97 16 143/94 07/20/18 13:15 88 15 126/86 07/20/18 13:00 90 15 140/85 07/20/18 12:45 96.7 F L 85 16 147/77 Intake and Output 07/20/18 07/20/18 07/21/18 14:59 22:59 06:59 Output Total 150 Balance -150 Output: Urine 150 Other: # Voids 1 - Exam Lungs: bilateral: normal Chest: Normal S1, Normal S2 Extremities: Present: normal Abdomen: Present: normal appearance, soft Uterus: Present: normal, firm - Labs Labs: Abnormal Lab Results - Last 24 Hours (Table) 07/20/18 Range/Units 05:50 WBC 11.6 H (3.8-10.6) k/uL Neutrophils # 8.7 H (1.3-7.7) k/uL Assessment and Plan Assessment: day #1. Patient is resting without complaints. Patient desires to go home. Vital signs are stable she is afebrile. Uterus is firm nontender she's having normal lochia. Blood pressures highest 140s over 90s not requiring treatment. Patient is asymptomatic. Plan today is to continue routine care discharge home later today. (1) 37 weeks gestation of Current Visit: Yes Status: Acute Code(s): Z3A.37 - 37 WEEKS GESTATION OF SNOMED Code(s): 89180512 (2) Gestational hypertension Current Visit: No Status: Acute Code(s): O13.9 - GESTATIONAL HTN W/O SIGNIFICANT PROTEINURIA, UNSP TRIMESTER SNOMED Code(s): 364947158
[2018-07-21] MEDS: IBUPROFEN 600 MG TAB PO PRN (06:32)
--- NOTE | 2018-07-21 06:33 | P.DS ---
Providers Date of admission: 07/19/18 16:15 Expected date of discharge: 07/21/18 Attending physician: Javi Roach Primary care physician: Alee Sarah - Discharge Diagnosis(es) (1) 37 weeks gestation of Current Visit: Yes Status: Acute (2) Gestational hypertension Current Visit: No Status: Acute Hospital Course: Please see dictated H&P for intimate details of this patient's admission. Brief summary this is a pleasant 33-year-old 2 para 1 female 37 weeks is ad mitted for two-stage induction of labor secondary to gestational hypertension. Patient is admitted she is uncomplicated induction of labor quickly goes on have a vaginal delivery viable male . Please see dictated delivery note. day #1 patient is felt to be stable for discharge home follow up with me in 1 week for blood pressure check. Procedures: Two-stage induction of labor and normal vaginal delivery. Patient Condition at Discharge: Good Plan - Discharge Summary New Discharge Prescriptions: New Ibuprofen [Motrin] 600 mg PO Q6HR PRN #40 tab PRN Reason: Mild Pain Or Fever >= 100.5 No Action Pnv,Calcium 72/Iron/Folic Acid [ Plus Tablet] 1 each PO DAILY Ranitidine HCl [Zantac] 1 tab PO DAILY Discharge Medication List Pnv,Calcium 72/Iron/Folic Acid [ Plus Tablet] 1 each PO DAILY 07/13/18 [History] Ranitidine HCl [Zantac] 1 tab PO DAILY 07/13/18 [History] Ibuprofen [Motrin] 600 mg PO Q6HR PRN #40 tab 07/21/18 [Rx] Follow up Appointment(s)/Referral(s): Javi Roach MD [STAFF PHYSICIAN] - 09/01/18 10:45 am (Please see me also 1 week for a blood pressure check.) Patient Instructions/Handouts: Vaginal Delivery (DC) Activity/Diet/Wound Care/Special Instructions: No intercourse or anything per vagina for 6 weeks. Please call if any fever, chills, excessive vaginal bleeding, and/or abdominal pain. Discharge Disposition: HOME SELF-CARE
[2018-07-21 07:48] VITALS: BP 135/85; PULSE 62; RESP 16; TEMP 98
== END 2018-07-21 14:57 | disposition home or self-care (01) | DRG 807 ==
LOC: 4FBP 16:15
PROVIDERS: ADMIT Obstetrics & Gynecology; ATTEND Obstetrics & Gynecology
PROC: 3E0P7VZ Introduction of Hormone into Female Reproductive, Via Natural or Artificial Opening (ICD-10-PCS; 2018-07-19)
PROC: 10E0XZZ Delivery of Products of Conception, External Approach (ICD-10-PCS; principal; 2018-07-20)
PROC: 10907ZC Drainage of Amniotic Fluid, Therapeutic from Products of Conception, Via Natural or Artificial Opening (ICD-10-PCS; 2018-07-20)
PROC: 00HU33Z Insertion of Infusion Device into Spinal Canal, Percutaneous Approach (ICD-10-PCS; 2018-07-20)
PROC: 3E0R3BZ Introduction of Anesthetic Agent into Spinal Canal, Percutaneous Approach (ICD-10-PCS; 2018-07-20)
DX: O13.4 Gestational [pregnancy-induced] hypertension without significant proteinuria, complicating childbirth (principal); Z37.0 Single live birth; O71.82 Other specified trauma to perineum and vulva; O69.81X0 Labor and delivery complicated by cord around neck, without compression, not applicable or unspecified; Z3A.37 37 weeks gestation of pregnancy; Z79.899 Other long term (current) drug therapy
CPT/HCPCS: 80076; 84550; 85025; 85610; 85730; 86850; 86900; 86901; 88307